=== PATIENT | female | born 1955 | race Caucasian/White ===

== ENCOUNTER 2023-07-18 08:50 | Emergency (ER) | payer OTHER, MEDICARE, SELFPAY ==
[2023-07-18] VITALS (11 sets, daily range): BP systolic 118–158; BP diastolic 69–124; PULSE 70–91; RESP 11–18; TEMP 36.6; O2SAT 96–100
--- NOTE | ~2023-07-18 | CT_ITS ---
CT head without contrast Indication: Syncope Technique: Serial scans were obtained through the brain without the administration of contrast. Dose reduction technique was used on this scan by utilizing automated exposure control and iterative recon struction technique. The dose-length product (DLP) was 681.00 mGy-cm. Findings: There is no evidence of intracranial hemorrhage, mass lesion, or acute infarct. The ventri cles and subarachnoid spaces are dilated, consistent with mild atrophy. Extensive low attenuation reg ions are seen within the periventricular white matter bilaterally, likely representing changes from c hronic microvascular ischemic disease. There is no evidence of edema, mass effect or midline shift. The visualized paranasal sinuses and mastoid air cells are clear. Impression: No intracranial hemorrhage, mass, or acute infarct. Atrophy and chronic white matter changes, as above. Reviewed, dictated and finalized at location . E [facility]ER Impression: No intracranial hemorrhage, mass, or acute infarct. Atrophy and chronic white matter changes, as above.
--- NOTE | 2023-07-18 08:59 | ECG_ITS ---
Measurements Intervals [place] Rate: 70 P: -39 IA: 167 QRS: 200 QRSD: 201 T: 15 QT: 485 QTc: 526 Interpretive Statements ELECTRONIC VENTRICULAR PACEMAKER ATRIAL SENSING AND ATRIAL PACING ARE ALSO DEMONSTRATED ABNORMAL RHYTHM ECG NO PREVIOUS ECG AVAILABLE FOR COMPARISON Electronically Signed On 07-18-2023 10:46:22 [employer]AND CUTTER OPERATOR by Rudy Diana M.D.
--- NOTE | 2023-07-18 10:17 | ED.GENADULT ---
HPI - General Adult General Chief complaint: Recheck/Abnormal Lab/Rx Stated complaint: Low BP after BM Time Seen by Provider: 07/18/23 08:56 History of Present Illness HPI narrative: 68-year-old female present to the emergency department for evaluation after having an episode of low blood pressure while she is having a bowel movement this morning. Patient does have a prior history a brain bleed and had been transferred to [facility], from [facility] patient was transfer [facility]. While at rehab patient developed a infection and was transferred back to [facility] and patient was on antibiotics for either a brain or urinary tract infection. Patient was discharged from [facility] to [facility]. Since being at [facility] patient has had issues with nighttime confusion. Patient has been doing well with her rehab they are interested in getting her discharged back to home. Upon arrival to the ED patient complains of feeling tired but denies any other pain or complaint. Patient's blood pressure is appropriate in the ED. Related Data Home Medications Medication Instructions Recorded Confirmed amiodarone 200 mg tablet 200 mg PO DAILY 07/05/23 07/05/23 cyanocobalamin (vitamin B-12) 1,000 mcg PO DAILY 07/05/23 07/05/23 1,000 mcg tablet levothyroxine 100 mcg tablet 100 mcg PO DAILY 07/05/23 07/05/23 (Synthroid) lidocaine 5 % topical patch 1 patch topical DAILY 07/05/23 07/05/23 losartan 25 mg tablet 25 mg PO BID 07/05/23 07/05/23 melatonin 3 mg tablet 6 mg PO HS 07/05/23 07/05/23 warfarin 4 mg tablet 4 mg PO 2XW 07/05/23 07/05/23 warfarin 6 mg tablet 6 mg PO 5XW 07/05/23 07/05/23 Allergies Allergy/AdvReac Type Severity Reaction Status Date / Time No Known Allergies Allergy Verified 07/05/23 15:15 Review of Systems Review of Systems: All systems reviewed & are unremarkable except as noted in HPI and below PMFSH Social History Social History Smoking status: Never smoker Alcohol intake: never Substance use: never Spiritual care concerns: No (Church) Exam Narrative: APPEARANCE: Well appearing, no pain, no distress, well-nourished. HEAD: normocephalic, atraumatic. EYES: PERRLA/EOMI, conjunctivae clear. NOSE: Normal no drainage EARS:TMS clear with good light reflex. THROAT: Pharynx clear, no exudate. NECK: Supple. No adenopathy, no masses. RESPIRATORY: Airway patent, respirations nonlabored. Clear to auscultation bilaterally, no rales, rhonchi, wheezing. CARDIOVASCULAR: Regular rate and rhythm without murmurs rubs or gallops. ABDOMINAL: Soft, nontender, nondistended, normal bowel sounds MUSCULOSKELETAL: Moves all extremities. Strength/ROM intact, No edema, No calf tenderness. NEURO: Alert. Cranial nerves II through XII intact. Good gait. Good coordination SKIN: Warm, dry. Normal Color Course Course Emergency Course: 68-year-old female presenting ED for evaluation after having a syncopal episode. Patient states that she has had this happen multiple times for all having a bowel movement. Patient is back to her baseline now denies any complaints. Patient is afebrile with no leukocytosis and a stable hemoglobin of 10.3. No significant abnormalities on her CMP and patient has no evidence of infection on her UA. Patient was negative for influenza RSV and for COVID. Patient had a head CT that showed no acute intr intracranial abnormality. Patient and family were updated on the results of the workup and patient is requesting discharge to home. Patient was encouraged to take stool softeners to prevent her from having to bear down during a bowel movement. Vital Signs Vital signs: Vital Signs Temperature 97.8 F 07/18/23 08:55 Pulse Rate 73 07/18/23 08:55 Respiratory Rate 16 07/18/23 08:55 Blood Pressure 135/87 07/18/23 08:55 Pulse Oximetry 100 07/18/23 08:55 Oxygen Delivery Room Air 07/18/23 08:55 Temperature 97.8 F 07/18/23 08:55 Pulse Rate 70 07/18/23 14:31 Respiratory
[2023-07-18 11:43] LABS: Basophils Percent Auto 0.5 % (0.2-1.2); Eosinophils Absolute Auto 0.1 K/mm3 (0-0.3); Eosinophils Percent Auto 1.4 % (0-4.4); Hematocrit 34.2 % (37.0-47.0); Hemoglobin 10.3 g/dL (12.0-15.0); Immature Granulocyte Absolute 0.02 K/mm3 (0.00-0.031); Immature Granulocyte Percent A 0.5 % (0-0.5); Lymphocytes Absolute Auto 0.68 K/mm3 (0.9-3.2); Mean Corpuscular HGB Conc 30.1 g/dl (32-36); Mean Corpuscular Hemoglobin 28.5 pg (26-34); Mean Corpuscular Volume 94.7 fl (80-100); Mean Platelet Volume 9.9 fl (7.4-10.4); Monocytes Absolute Auto 0.3 K/mm3 (0.1-0.6); Neutrophils Absolute Auto 3.1 K/mm3 (1.3-6.7); Neutrophils Percent Auto 73.6 % (45.5-73.1); Platelet Count Result 173 k/mm3 (150-375); Red Blood Count 3.61 M/mm3 (4.2-5.4); Red Cell Distribution Width 17.2 % (11.5-14.5); White Blood Count 4.3 K/mm3 (4.5-10.0)
[2023-07-18 11:44] LABS: Appearance Urine Clear (Clear); Bilirubin Urine Negative (Negative); Blood Urine Negative (Negative); Color Urine Yellow (Yellow); Glucose Urine UA Negative (Negative); Ketones Urine Negative (Negative); Leukocyte Esterase Ur Negative LEU/UL (Negative); Nitrate Urine Negative (Negative); Protein Urine Negative (Negative); Specific Grav Ur 1.006 (1.001-1.035); Urobilinogen Urine 0.2 mg/dL (<2.0); pH Urine 7.5 (5.0-9.0)
[2023-07-18 11:52] LABS: Alanine Aminotransferase 17 U/L (6-35); Albumin Level 3.2 g/dL (3.5-5.1); Alkaline Phosphatase 67 U/L (38-126); Anion Gap 6 mmol/L (8-16); Aspartate Amino Transferase 29 U/L (14-36); Bilirubin,Total 0.4 mg/dL (0.2-1.3); Blood Urea Nitrogen 15 mg/dL (7-17); Calcium 8.6 mg/dL (8.4-10.2); Carbon Dioxide 25 mmol/L (22-30); Chloride 107 mmol/L (98-107); Estimated CRCL calculation 48 ml/min; Estimated Glomerular Filt Rate 49; Glucose 104 mg/dL (65-110); Magnesium 1.9 mg/dL (1.6-2.3); Potassium 3.7 mmol/L (3.4-5.0); Sodium 138 mmol/L (137-145)
[2023-07-18 12:15] LABS: Add Urine Microscopic? NO
[2023-07-18 12:19] LABS: Influenza A QL RT-PCR Negative (Negative); Influenza B QL RT-PCR Negative (Negative); RSV RNA, RT-PCR Negative (Negative); SARS-CoV-2 RNA PCR Negative (Negative)
[2023-07-18] MEDS: SODIUM CHLORIDE 0.9% IV 500 ML 999 ML IV CONT (13:13)
--- NOTE | 2023-07-18 15:42 | PC.NURSE ---
[facility] Called and gave nurse report, they are expecting her back at Rehab. Pt's riding with her as well. Wheeled out in wheelchair by RN.
== END 2023-07-18 15:42 ==
PROVIDERS: Emergency Provider Emergency Medicine; PCP Internal Medicine
DX: R55 Syncope and collapse (principal); Z20.822 Contact with and (suspected) exposure to COVID-19; I61.9 Nontraumatic intracerebral hemorrhage, unspecified; Z95.0 Presence of cardiac pacemaker; Z79.01 Long term (current) use of anticoagulants; Z86.73 Personal history of transient ischemic attack (TIA), and cerebral infarction without residual deficits
CPT/HCPCS: 36415; 70450; 80053; 81003; 83735; 85025; 87637; 93005; 99284; J7040